=== PATIENT | male | born 1965 | race Caucasian/White ===

== ENCOUNTER 2022-09-12 10:05 | Outpatient (CLI) | payer BC, SELFPAY ==
--- NOTE | 2022-09-12 10:15 | MR_ITS ---
[address] [address] Phone:?[phone] Fax:?[phone] Referring Physician Information: Aidan Noble M.D. [id number] [facility] [address] Phone:?[phone] Fax:?[phone] Patient:Rashid Padilla D.O.B:?1965 Sex:?Male Phone:?[phone] [facility] MRN:?[id number] Exam Date:?09/12/2022 ? EXAM: MRI of the LEFT SHOULDER, without contrast CLINICAL: Left shoulder pain. Evaluate for rotator cuff tear. COMPARISONS: None available. TECHNICAL: MRI sequences of the left shoulder: Axials: PD, PDFS Coronals: PD, T2FS Sagittals: PDFS, T2 SEDATION: None. CONTRAST: None. FINDINGS: Rotator cuff: Supraspinatus/Infraspinatus: There is full-thickness tearing throughout the distal supraspinatus tendon with retraction of torn tendon fibers to the level of the mid humeral head. Tendinosis and partial tearing involves the distal infraspinatus tendon. No significant fatty atrophy of the muscle bellies at this time. Teres minor: No tendinosis, tear or atrophy. Subscapularis: Full-thickness tearing involving the insertional fibers of the distal subscapularis tendon with approximately 4 mm of proximal retraction of torn tendon fibers. There is moderate fatty atrophy of the muscle belly about the myotendinous junction. Bursae: Subacromial-subdeltoid: Mild bursal fluid. Subcoracoid: No convincing subcoracoid bursal thickening/bursitis. Coracoacromial arch: Acromion morphology: Type II. No os acromiale. Acromiohumeral space: Within normal limits. Coracohumeral space: Within normal limits. Biceps tendon, long head: Mild tendinosis of the intra-articular tendon. The tendon is dislocated medially from the bicipital groove into torn distal subscapularis tendon fibers along the anterior humeral head. No tendon disruption. Glenohumeral joint: Physiologic volume of joint fluid. Articular cartilage: There is full-thickness chondral loss involving the superomedial humeral head measuring approximately 9 mm in cranial caudal dimension as seen on coronal series 4 images 15-16. Remainder of the glenohumeral cartilage appears maintained. Capsule: No convincing evidence of capsular thickening or injury. Labrum: No convincing discrete labral tear identified as visualized on this nonarthrogram exam. No perilabral cyst identified. Bones: No suspicious marrow signal alteration, fracture or dislocation. Acromioclavicular joint: Minimal changes of arthrosis with an AC joint effusion present. IMPRESSION: 1. Full-thickness tearing throughout the distal supraspinatus tendon with retraction of torn tendon fibers to the level of the mid humeral head. Tendinosis and partial tearing involving the distal infraspinatus tendon. 2. Full-thickness tearing involving the distal subscapularis tendon with approximately 4 mm of proximal retraction of torn tendon fibers. Moderate fatty atrophy of the subscapularis muscle belly about the myotendinous junction. 3. Medial dislocation of the long head biceps tendon from the bicipital groove extending into torn distal subscapularis tendon fibers. There is mild tendinosis of the intra-articular tendon. 4. Full-thickness chondral loss involving the superomedial humeral head. 5. Minimal AC joint arthrosis. [facility] Electronically signed on 09/12/2022 12:39:00 PM by George Nogueira D.O.
== END 2022-09-12 10:06 | disposition home or self-care (01) ==
LOC: MRI 10:07
PROVIDERS: PCP Family Medicine; Visit Provider Orthopaedic Surgery Sports Medicine
DX: M75.102 Unspecified rotator cuff tear or rupture of left shoulder, not specified as traumatic (principal); M19.012 Primary osteoarthritis, left shoulder
CPT/HCPCS: 73221